=== PATIENT | female | born 1965 | race Caucasian/White ===

== ENCOUNTER 2020-04-28 10:07 | Outpatient (CLI) | payer OTHER, SELFPAY ==
--- NOTE | 2020-04-28 10:39 | MM_ITS ---
WS: [id number] DIAGNOSTIC LEFT DIGITAL MAMMOGRAM WITH CAD HISTORY: 6 MO F/U LT BREAST ASYMMETRY COMPARISON: 07/29/2019, 06/16/2019 and 06/10/2018 Technique: CC, MLO and ML views. Spot compression LEFT CC and MLO. Breast composition: There are scattered areas of fibroglandular density. The asymmetry in the LEFT b reast is no longer present. Otherwise stable parenchymal pattern over multiple prior years. MM/[id number] IMPRESSION: BI-RADS: 2-Benign FOLLOW UP: See Report Patient to return to annual bilateral screening mammography.
== END 2020-04-28 10:08 | disposition home or self-care (01) ==
PROVIDERS: PCP Family Medicine; Visit Provider Family Medicine
DX: N64.89 Other specified disorders of breast (principal)
CPT/HCPCS: 77065

== ENCOUNTER → 2020-08-12 09:47 | Outpatient (BNVA) | payer OTHER, SELFPAY | PROVIDERS: PCP Family Medicine; Visit Provider Family Medicine Adult Medicine | DX: E11.9 Type 2 diabetes mellitus without complications (principal); F41.9 Anxiety disorder, unspecified; F32.9 Major depressive disorder, single episode, unspecified; R45.86 Emotional lability | CPT/HCPCS: 36416; 82962; 83036 ==

== ENCOUNTER → 2020-10-11 15:10 | Outpatient (BNVA) | payer OTHER, SELFPAY | PROVIDERS: PCP Family Medicine; Visit Provider Family Medicine | DX: E11.9 Type 2 diabetes mellitus without complications (principal); E78.1 Pure hyperglyceridemia; F32.9 Major depressive disorder, single episode, unspecified; F41.9 Anxiety disorder, unspecified | CPT/HCPCS: 80053; 80061; 82043; 84443; 85025 ==

== ENCOUNTER → 2020-11-25 15:04 | Outpatient (BNVA) | payer OTHER, SELFPAY | PROVIDERS: PCP Family Medicine Adult Medicine; Visit Provider Family Medicine | DX: E11.9 Type 2 diabetes mellitus without complications (principal); Z79.4 Long term (current) use of insulin; F32.9 Major depressive disorder, single episode, unspecified; F41.9 Anxiety disorder, unspecified; Z68.29 Body mass index [BMI] 29.0-29.9, adult | CPT/HCPCS: 83036 ==

== ENCOUNTER 2021-06-02 15:10 | Outpatient (CLI) | payer OTHER, SELFPAY ==
--- NOTE | 2021-06-02 15:30 | MM_ITS ---
WS: [id number] BILATERAL SCREENING DIGITAL MAMMOGRAM WITH CAD HISTORY: [facility] Screening COMPARISON: 04/28/2020 and 06/16/2019 Bilateral CC and MLO views submitted. Computer aided detection analyzed. Breast composition: There are scattered areas of fibroglandular density. No suspicious masses, microc alcifications or architectural distortion. MM/[place] [id number] IMPRESSION: BI-RADS: 1-Negative FOLLOW UP: 1 Year Follow-up
== END 2021-06-02 15:11 | disposition home or self-care (01) ==
LOC: RADSHAW 15:15
PROVIDERS: PCP Family Medicine Adult Medicine; Visit Provider Family Medicine Adult Medicine
DX: Z12.31 Encounter for screening mammogram for malignant neoplasm of breast (principal)
CPT/HCPCS: 77067

== ENCOUNTER 2022-08-16 07:02 | Outpatient (CLI) | payer OTHER, SELFPAY ==
[2022-08-16 07:35] LABS: Basophils # 0.1 10^3/uL (0.0-0.1); Basophils % 0.7 %; Eosinophils # 0.1 10^3/uL (0.0-0.8); Eosinophils % 0.8 %; Hematocrit 47.5 % (37.0-47.0); Hemoglobin 15.7 g/dL (11.5-15.3); Lymphocytes # 4.1 10^3/uL (0.8-4.8); Lymphocytes % 46.8 %; Mean Corpuscular HGB Conc 33.1 g/dL (30.0-36.0); Mean Corpuscular Volume 81.6 fl (81-99); Mean Platelet Volume 9.2 fL (7.4-10.4); Monocytes # 0.7 10^3/uL (0.2-0.9); Monocytes % 7.8 %; Neutrophils # 3.79 10^3/uL (1.8-7.7); Neutrophils % 43.2 %; Nucleated Red Blood Cells % 0 %; Platelet Count 371 10^3/cmm (130-400); Red Blood Count 5.82 10^6/uL (4.1-5.3); Red Cell Distribution Width 14.2 % (12.1-15.1); White Blood Count 8.8 10^3/uL (4.0-10.0)
[2022-08-16 08:22] LABS: Alanine Aminotransferase 25 U/L (0-33); Albumin Level 4.8 g/dL (3.5-5.2); Alkaline Phosphatase 87 U/L (35-105); Anion Gap 14.8 (5-19); Aspartate Amino Transferase 21 U/L (0-32); Blood Urea Nitrogen 14 mg/dL (6-20); Calcium 9.6 mg/dL (8.5-10.5); Carbon Dioxide 30 mmol/L (22-29); Chloride 98 mmol/L (98-107); Chol HDL Ratio 3.39 mg/dL (0.0-4.40); Cholesterol 200 mg/dL (0-200); Globulin 2.7 g/dL (1.3-4.6); Glomerular Filtration Rate 86.9 mL/min (90-130); Glucose 88 mg/dL (65-115); HDL Cholesterol 59 mg/dL (60-100); LDL Cholesterol Calculated 109 mg/dL (50-129); LDL HDL Ratio 1.85 RATIO (0.00-3.22); Osmolality Calculated 288 mOsm/kg (285-295); Potassium 3.8 mmol/L (3.5-5.1); Sodium 139 mmol/L (136-145); Thyroid Stimulating Hormone 1.94 uIU/mL (0.27-4.20); Total Bilirubin 0.7 mg/dL (0.15-1.2); Total Protein 7.5 g/dL (6.6-8.7); Triglycerides 161 mg/dL (0-150)
== END 2022-08-16 07:03 | disposition home or self-care (01) ==
LOC: LAB 07:05
PROVIDERS: PCP Family Medicine Adult Medicine; Visit Provider Family Medicine Adult Medicine
DX: E11.9 Type 2 diabetes mellitus without complications (principal); G47.33 Obstructive sleep apnea (adult) (pediatric); Z79.4 Long term (current) use of insulin; R25.1 Tremor, unspecified; E78.1 Pure hyperglyceridemia
CPT/HCPCS: 36415; 80053; 80061; 84443; 85025

== ENCOUNTER 2023-03-27 15:23 | Outpatient (CLI) | payer OTHER, SELFPAY ==
--- NOTE | 2023-03-27 15:30 | MM_ITS ---
WS: [id number] BILATERAL 3D TOMOSYNTHESIS DIGITAL SCREENING MAMMOGRAPHY WITH CAD CLINICAL INFORMATION: SCREEN HISTORY: Screening mammogram. No current complaints. COMPARISON: 2020 TECHNIQUE: Bilateral CC and MLO views. FINDINGS: Scattered fibroglandular densities bilaterally. No suspicious focal mass, asymmetry, calcifications, or architectural distortion. No evidence of malignancy. Tiny incidental punctate calcifications. MM/[place] [id number] IMPRESSION: BI-RADS: 2-Benign FOLLOW UP: 1 Year Follow-up Recommend return to annual screening mammography.
== END 2023-03-27 15:24 | disposition home or self-care (01) ==
LOC: RAD 15:24
PROVIDERS: PCP Family Medicine Adult Medicine; Visit Provider Obstetrics & Gynecology
DX: Z12.31 Encounter for screening mammogram for malignant neoplasm of breast (principal)
CPT/HCPCS: 77063; 77067

== ENCOUNTER → 2023-04-29 11:19 | Outpatient (BNVA) | payer OTHER, SELFPAY | PROVIDERS: PCP Family Medicine Adult Medicine; Visit Provider Emergency Medicine | DX: R39.9 Unspecified symptoms and signs involving the genitourinary system (principal); N39.0 Urinary tract infection, site not specified; N30.00 Acute cystitis without hematuria | CPT/HCPCS: 81000; 87086 ==

== ENCOUNTER → 2023-06-17 15:04 | Outpatient (BNVA) | payer OTHER, SELFPAY | PROVIDERS: PCP Family Medicine Adult Medicine; Visit Provider Emergency Medicine | DX: J06.9 Acute upper respiratory infection, unspecified (principal) | CPT/HCPCS: 87426 ==

== ENCOUNTER 2023-08-08 06:12 | Outpatient (CLI) | payer OTHER, SELFPAY ==
[2023-08-08 06:50] LABS: Alanine Aminotransferase 24 U/L (0-33); Albumin Level 4.5 g/dL (3.5-5.2); Alkaline Phosphatase 69 U/L (35-105); Anion Gap 14.4 (5-19); Aspartate Amino Transferase 23 U/L (0-32); Blood Urea Nitrogen 15 mg/dL (6-20); Calcium 9.4 mg/dL (8.5-10.5); Carbon Dioxide 26 mmol/L (22-29); Chloride 104 mmol/L (98-107); Chol HDL Ratio 4.48 mg/dL (0.0-4.40); Cholesterol 206 mg/dL (0-200); Globulin 2.2 g/dL (1.3-4.6); Glomerular Filtration Rate 74.2 mL/min (90-130); Glucose 104 mg/dL (65-115); HDL Cholesterol 46 mg/dL (60-100); LDL Cholesterol Calculated 126 mg/dL (50-129); LDL HDL Ratio 2.74 RATIO (0.00-3.22); Osmolality Calculated 291 mOsm/kg (285-295); Potassium 4.4 mmol/L (3.5-5.1); Sodium 140 mmol/L (136-145); Total Bilirubin 0.5 mg/dL (0.15-1.2); Total Protein 6.7 g/dL (6.6-8.7); Triglycerides 170 mg/dL (0-150)
[2023-08-08 07:06] LABS: Estmated Average Glucose 111; Hemoglobin A1C 5.5 % (4.0-6.0)
== END 2023-08-08 06:13 | disposition home or self-care (01) ==
LOC: LAB 06:13
PROVIDERS: PCP Family Medicine Adult Medicine; Visit Provider Family Medicine Adult Medicine
DX: E11.69 Type 2 diabetes mellitus with other specified complication (principal); E66.9 Obesity, unspecified; E78.1 Pure hyperglyceridemia; F32.9 Major depressive disorder, single episode, unspecified; F41.9 Anxiety disorder, unspecified; R25.1 Tremor, unspecified
CPT/HCPCS: 36415; 80053; 80061; 83036

== ENCOUNTER 2024-07-29 14:54 | Outpatient (CLI) | payer OTHER, SELFPAY ==
--- NOTE | 2024-07-29 15:00 | MM_ITS ---
WS: [id number] BILATERAL 3D TOMOSYNTHESIS DIGITAL SCREENING MAMMOGRAPHY WITH CAD CLINICAL INFORMATION: Z12.31 - Encounter for screening mammogram for malignant ... HISTORY: Screening mammogram. No current complaints. COMPARISON: 2022 TECHNIQUE: Bilateral CC and MLO views. FINDINGS: Scattered fibroglandular densities bilaterally. No suspicious focal mass, asymmetry, calcifications, or architectural distortion. No evidence of malignancy. MM/MM scr tomosynthesis [id number] IMPRESSION: DENSITY: There are scattered areas of fibroglandular density. BI-RADS: 1 - Negative. FOLLOW UP: 1 Year Follow-up Recommend return to annual screening mammography.
== END 2024-07-29 14:55 | disposition home or self-care (01) ==
LOC: RAD 14:54
PROVIDERS: Visit Provider Obstetrics & Gynecology
DX: Z12.31 Encounter for screening mammogram for malignant neoplasm of breast (principal); R92.323 Mammographic fibroglandular density, bilateral breasts
CPT/HCPCS: 77063; 77067

== ENCOUNTER 2024-08-12 05:47 | Day surgery (SDC) | payer OTHER, SELFPAY ==
[2024-08-12 05:58] VITALS: BP 138/90; PULSE 85; RESP 16; TEMP 36.4; O2SAT 97; BMI 29.7
[2024-08-12] MEDS: sodium chloride 0.9% 1,000 ML 30 ML IV (06:08)
--- NOTE | 2024-08-12 06:51 | W.PM.OPSUD ---
Surgery/Procedure H&P Update DATE OF PROCEDURE: August 12, 2024 DATE H&P PERFORMED: 07/13/24 H&P UPDATE INFORMATION: I have reviewed H&P completed within last 30 days, I have examined patient prior to procedure and No changes to prior documentation PLANNED PROCEDURE: Operation Date: 08/12/24 07:00 Proposed Procedures p Colonoscopy 06251, G0105, Z12.11(Not Applicable) - Dennys Smith, DO
--- NOTE | 2024-08-12 06:55 | P.ANESASSM_ITS ---
Pre-Anesthetic Assessment Height/Weight: Height 1.63 m Weight 78.471 kg Temp Pulse Resp BP Pulse Ox O2 Del Method 97.6 F 76 16 112/68 95 Room Air 08/12/24 07:25 08/12/24 07:25 08/12/24 07:25 08/12/24 07:25 08/12/24 07:25 08/12/24 07:25 Preop Diagnosis: screening Operation Date: 08/12/24 07:00 Proposed Procedures p Colonoscopy 45769, G0105, Z12.11(Not Applicable) - Dennys Smith DO Familial anesthetic complications: none Was Beta Gentry taken within 24 hours: N/A Was Clonidine taken within 24 hours: N/A Last intake: Intake Last Liquid Date 08/11/24 Last Liquid Time 20:00 Last Solid Date 08/10/24 Last Solid Time 18:00 Social No alcohol and No tobacco Exam alert, oriented x 3 and clear to auscultation bilaterally Airway Mallampati: Class II Dentition: full History/ROS No significant history except as noted Pulmonary None reported CV/HEM None reported None reported Hepatic None reported GI None reported Metabolic pre diabetes Musc/skel None reported Neuropsych Anxiety and Depression Anesthetic Plan ASA status: 2 Anesthesia: Anesthesia Evaluation and MAC Risk of > 500 ml blood loss (7ml/kg in children): No Medications/Allergies Home Medications Medication Instructions Recorded Confirmed Last Taken Type cetirizine 10 mg tablet 10 mg PO DAILY allergies #90 tabs 02/14/22 08/10/24 08/11/24 Rx prenat.vits,nevaeh,qok-uuqt-ewvum 1 tab PO DAILY General Health #90 02/14/22 08/10/24 08/11/24 Rx tabs baclofen 5 mg tablet 5 mg PO DAILY PRN muscle tightness 12/12/22 08/10/24 Unknown Rx #30 tabs fluticasone propionate 50 2 spray intranasal DAILY #16 grams 06/17/23 08/10/24 08/11/24 Rx mcg/actuation nasal spray,suspension (Flonase Allergy Relief) bupropion HCl 150 mg 24 hr tablet, 150 mg PO [facility] Health 30 02/16/24 08/10/24 08/11/24 Rx extended release days #270 tabs cariprazine 3 mg capsule (Vraylar) See Rx Instructions .Route 04/07/24 08/10/24 08/11/24 Rx .COMPLEX #90 caps gemfibrozil 600 mg tablet 600 mg PO BID high fats and 05/22/24 08/10/24 08/11/24 Rx cholesterol 30 days #60 tabs hydroxyzine HCl 50 mg tablet 100 mg (2 x 50 mg) PO Q6H PRN 07/02/24 08/10/24 08/11/24 Rx anxiety attacks #120 tabs amitriptyline 75 mg tablet 37.5 mg PO DAILY 08/10/24 08/10/24 08/11/24 History estradiol 0.1 mg/24 hr weekly 1 patch transdermal .WEEKLY 08/10/24 08/10/24 08/10/24 History transdermal patch furosemide 40 mg tablet 40 mg PO DAILY 08/10/24 08/10/24 08/11/24 History Allergies Allergy/AdvReac Type Severity Reaction Status Date / Time cephalexin [From Keflex] Allergy Intermediate swelling, Verified 08/10/24 07:50 rash amoxicillin AdvReac Mild rash Verified 08/10/24 07:50 nystatin AdvReac Mild rash Verified 08/10/24 07:50 Current Medications Generic Name Dose Route Start Last Admin Trade Name Freq PRN Reason Stop Dose Admin Sodium Chloride 1,000 mls @ 30 mls/hr 08/12/24 06:00 08/12/24 06:08 Sodium Chloride 0.9% IV 08/13/24 05:59 30 mls/hr .Q24H SARAH Administration PFSH Anesthesia Medical History Weight reduction 1550 calorie diet BMI 30.0-30.9,adult Diabetes mellitus type 2 in obese Tremor Well woman exam with routine gynecological exam Allergic rhinitis due to allergen MACKENZIE (obstructive sleep apnea) IBS (irritable colon syndrome) Panic attacks Anxiety and depression Interstitial cystitis Rectocele, female Menopause syndrome Midline cystocele Hypertriglyceridemia Surgical History H/O tubal ligation S/P laparoscopic procedure 1987 S/P conization of cervix laser surgery H/O section 1988, 1992 H/O: hysterectomy 1994- AURE, ovaries spared. Michael [place], [place]. H/O oophorectomy 2011- Laparoscopic BSO, Extensive lysis of adhesions. Performed by Dr. David and Dr. Conn at [facility] in [place], [place]. H/O laparoscopy 2009- anterior colporrhaphy, transobturator suburethral sling and cystoscopy Performed by Dr. Ma at [facility] in [place], [place]. S/P cholecystectomy 1996 Family History Grandfather Heart disease maternal Stroke paternal Grandmother Diabetes maternal Sister Hypertension Thyroid disease Denies family history of Colon cancer Ovarian cancer Clotting disorder Breast cancer Anesthesia complication Bleeding disorder Uterine cancer Social History Smoking and tobacco/nicotine status: never used tobacco/nicotine Alcohol intake: never Substance/Drug Use: never Caregiver/support person: No Lives independently: Yes Household members: none Marital status: Highest education level completed: High School Graduate Current occupational status: employed Current occupation: [employer] Do you think of yourself as: Straight/Heterosexual Current gender identity: Female Diane/Mormonism: Moravian Data Anesthesia Cardiac Studies: No Data to Display
[2024-08-12 07:25] VITALS: BP 112/68; PULSE 76; RESP 16; TEMP 36.4; O2SAT 95
[2024-08-12 07:55] VITALS: BP 119/74; PULSE 77; RESP 18; O2SAT 96
--- NOTE | 2024-08-12 07:59 | ANE.PACU2 ---
Inpatient post-anesthesia follow up: Airway intact: Yes Vital signs: Temperature 97.6 F Pulse Rate 77 Respiratory Rate 18 Blood Pressure 119/74 Pulse Oximetry 96 Oxygen Delivery Me thod Room Air Oxygen Flow Rate Fraction of Inspir ed Oxygen Hydration adequate: Yes Nausea and vomiting: No Pain level: 1 Mental status: Baseline
== END 2024-08-12 07:59 | disposition home or self-care (01) ==
PROVIDERS: PCP Family Medicine Adult Medicine; Visit Provider Surgery
PROC: 0DJD8ZZ Inspection of Lower Intestinal Tract, Via Natural or Artificial Opening Endoscopic (ICD-10-PCS; CPT 45378; principal; 2024-08-12 07:00)
DX: Z12.11 Encounter for screening for malignant neoplasm of colon (principal); G47.33 Obstructive sleep apnea (adult) (pediatric)
CPT/HCPCS: 45378; J2704; J7030

== ENCOUNTER → 2024-10-27 15:49 | Outpatient (BNVA) | payer OTHER, SELFPAY | PROVIDERS: PCP Family Medicine Adult Medicine; Visit Provider Family Medicine | DX: I10 Essential (primary) hypertension (principal); E78.1 Pure hyperglyceridemia; R73.03 Prediabetes | CPT/HCPCS: 80053; 84443 ==

== ENCOUNTER → 2025-04-20 16:32 | Outpatient (BNVA) | payer OTHER, SELFPAY | PROVIDERS: PCP Family Medicine; Visit Provider Family Medicine | DX: R39.9 Unspecified symptoms and signs involving the genitourinary system (principal); R30.0 Dysuria | CPT/HCPCS: 87086 ==

== ENCOUNTER 2025-09-02 15:02 | Outpatient (CLI) | payer OTHER, SELFPAY ==
--- NOTE | 2025-09-02 15:08 | MM_ITS ---
WS: [id number] BILATERAL SCREENING DIGITAL TOMOSYNTHESIS MAMMOGRAM WITH CAD HISTORY: SCREENING COMPARISON: 07/29/2024, 03/27/2023, 06/02/2021, 06/16/2019 Bilateral CC and MLO views with tomosynthesis and synthetic mammography submitted. Computer aided detection analyzed. Breast composition: There are scattered areas of fibroglandular density. No suspicious masses, microcalcifications or architectural distortion. Long-term stable triangular asymmetry in the lateral RIGHT breast seen best on the CC projection. The remaining breasts are normal. No suspicious grouping of c alcifications. No new mass. MM/MM scr BI tomosynthesis [id number] IMPRESSION: BI-RADS: 2 - Benign. FOLLOW UP: 1 Year Follow-up
== END 2025-09-02 15:03 | disposition home or self-care (01) ==
LOC: RAD 15:02
PROVIDERS: PCP Family Medicine; Visit Provider Family Medicine
DX: Z12.31 Encounter for screening mammogram for malignant neoplasm of breast (principal); R92.323 Mammographic fibroglandular density, bilateral breasts; N64.89 Other specified disorders of breast
CPT/HCPCS: 77063; 77067

== ENCOUNTER 2025-09-09 08:47 | Outpatient (CLI) | payer SELFPAY ==
[2025-09-09 09:49] LABS: HF Add Manual Diff No
[2025-09-09 09:53] LABS: Hematocrit 44.2 % (36-47); Hemoglobin 14.20 g/dL (11.27-16.99); Mean Corpuscular HGB Conc 32.1 g/dL (30-55); Mean Corpuscular Hemoglobin 24.8 pg (27-33); Mean Corpuscular Volume 77.1 fl (85-98); Nucleated Red Blood Cells % 0 %; Platelet Count 361 10^3/cmm (157-399); Red Blood Count 5.73 10^6/uL (3.85-5.65); White Blood Count 9.32 10^3/uL (3.29-11.43)
[2025-09-09 10:21] LABS: Estmated Average Glucose 117; Hemoglobin A1C 5.7 % (4.0-6.0)
[2025-09-09 11:14] LABS: Alanine Aminotransferase 24 U/L (0-33); Albumin Level 4.6 g/dL (3.5-5.2); Alkaline Phosphatase 75 U/L (35-105); Anion Gap 18.8 (5-19); Aspartate Amino Transferase 24 U/L (0-32); Blood Urea Nitrogen 17 mg/dL (6-20); Calcium 9.7 mg/dL (8.5-10.5); Carbon Dioxide 24 mmol/L (22-29); Chloride 103 mmol/L (98-107); Cholesterol 220 mg/dL (0-200); Globulin 2.5 g/dL (1.3-4.6); Glucose 92 mg/dL (65-115); HDL Cholesterol 46 mg/dL (60-100); Osmolality Calculated 295 mOsm/kg (285-295); Potassium 3.8 mmol/L (3.5-5.1); Sodium 142 mmol/L (136-145); Thyroid Stimulating Hormone 1.94 uIU/mL (0.27-4.20); Total Protein 7.1 g/dL (6.6-8.7); Triglycerides 239 mg/dL (0-150)
== END 2025-09-09 08:48 | disposition home or self-care (01) ==
PROVIDERS: PCP Family Medicine; Visit Provider Dermatology
DX: Z01.89 Encounter for other specified special examinations (principal)
CPT/HCPCS: 36415